=== PATIENT | male | born 2000 | race Caucasian/White ===

== ENCOUNTER 2022-01-30 18:52 | Emergency (ER) | payer OTHER ==
[~2022-01-30] VITALS: Ht 180.3 cm; Wt 74.8 kg
[2022-01-30 18:57] VITALS: BP 115/79
--- NOTE | 2022-01-30 19:00 | NUR ---
THOMAS [id number] "Smacked into a door while running. Pain Right Rib" . PT A/OX4. TOLERATING R/A WELL WITH NO SOB, RESP EVEN AND NON LABORED
[2022-01-30] MEDS ORDERED: HYDROCODONE/APAP 5/325MG TABLET ONE (19:29)
[2022-01-30] MEDS ORDERED: HYDROCODONE/APAP 5/325MG TABLET PO ONE (19:30)
--- NOTE | 2022-01-30 20:23 | NUR ---
Patient discharged to home in stable condition. Written and verbal after care instructions given. Patient verbalizes understanding of instruction. PT ambulatory with a steady gait
== END 2022-01-30 21:45 | disposition home or self-care (01) ==
LOC: ER 18:55
DX: S20.211A Contusion of right front wall of thorax, initial encounter (principal); W22.01XA Walked into wall, initial encounter; Y93.02 Activity, running; Y92.89 Other specified places as the place of occurrence of the external cause; Y99.8 Other external cause status
CPT/HCPCS: 71100-TC